=== PATIENT | male | born 1955 | race Caucasian/White ===

== ENCOUNTER → 2016-11-01 | Outpatient (CLI) | payer BC ==
--- NOTE | 2016-11-01 13:16 | DI ---
US ABDOMEN LIMITED,11/01/2016 8:53 AM: Clinical History: Intra-abdominal and pelvic swelling with mass and lump in the left middle abdomen. Previous Exam: None at this facility. Findings: Multiple grayscale and color Doppler sonographic images are obtained through the abdomen demonstratin g a normal-appearing spleen and left kidney. The palpable lesion was also imaged. The left kidney measured 12.0 cm in length without hydronephrosis nor nephrolithiasis. The palpable a rowan corresponds with a 1.2 x 1.3 x 0.6 cm well-circumscribed mass within the subcutaneous fat with si milar echotexture and signature to the adjacent subcutaneous fat. Impression: 1.2 x 1.3 x 0.6 cm lipoma within the left upper anterior abdominal wall.
== END ==
LOC: EDBD 08:45 → US 08:45
PROVIDERS: ATTEND Student in an Organized Health Care Education/Training Program
DX: R19.09 Other intra-abdominal and pelvic swelling, mass and lump (principal); D17.5 Benign lipomatous neoplasm of intra-abdominal organs
CPT/HCPCS: 76705

== ENCOUNTER 2016-12-17 06:49 | Day surgery (SDC) | payer BC ==
[~2016-12-17 06:49] MED LIST: LIDOCAINE W/ SODIUM BICARB 0.5 ML SYR ONE; Lactated Ringers 1,000 ML PRIMARY IV ONE
[2016-12-17] MEDS ORDERED: SODIUM BICARBONATE 8.4% - 50 ML VIAL ONE (07:06)
[2016-12-17] MEDS ORDERED: LIDOCAINE HCL 1%/EPI 1:100,000 - 20 ML VIAL ONE (07:06)
--- NOTE | 2016-12-17 09:19 | GEN.OPNOTE ---
Colonoscopy Procedure Note Surgery Date: 12/17/16 Preoperative Diagnosis: Colon cancer screening. Postoperative Diagnosis: Colon cancer screening. Colon polyps. Procedure: Complete colonoscopy with hot snare polypectomy 2. Surgeon: Sebastian Fletcher MD Anesthesia Provider: Perla Quispe CRNA Anesthesia Type: MAC Indications: Colon cancer screening for colon cancer prevention and/or early detection. Findings: Prep : [Very good] Cecum : [Normal] Ascending : [Normal] Transverse : [Sessile polyp at the hepatic flexure. Sessile polyp in the distal transverse colon.] Sigmoid : [Normal] Rectum : [Normal] Digital Rectal Exam : [Enlarged but nonnodular prostate.] A lubricated flexible colonoscope was inserted and passed to the blind end of the cecum. The blind end of the cecum and ileocecal valve were clearly seen. Patient gives a history of a right colectomy but I saw no evidence of that. Air was aspirated as the scope was withdrawn. The cecum and ascending colon were unremarkable. There was a sessile polyp at the hepatic flexure. Hot snare polypectomy was performed. The base was cauterized. It was difficult to get to. We'll collect a final result was excellent. The scope was continually withdrawn through the transverse colon. In the mid to distal transverse colon was another polyp. Hot snare polypectomy was performed. Hemostasis was assured. The scope was withdrawn through the remainder of a normal-appearing colon. Specifically there were no further polyps, tumors, neoplastic masses, infectious or inflammatory processes identified. The scope was withdrawn completing the procedure. Patient tolerated the procedure well without complication. He was taken to outpatient surgery in stable condition. Follow-up will be in my office in approximately 10 days. We will discuss the biopsy results at that time.
--- NOTE | 2016-12-17 09:22 | GEN.OPNOTE ---
Operative Note Surgery Date: 12/17/16 Preoperative Diagnosis: Left upper quadrant abdominal wall lipoma. Postoperative Diagnosis: Same. Procedure: Excision 2 cm left upper quadrant abdominal wall lipoma. Surgeon: Sebastian Fletcher MD Anesthesia Provider: Perla Quispe CRNA Anesthesia Type: Local (1% Xylocaine with epinephrine and bicarbonate per Sebastian Fletcher M.D.), MAC Estimated Blood Loss (mL): 2 Fluids: 600 mL of crystalloid. Pathology: Specimen to pathology. Indications: Tender and symptomatic lipoma left upper quadrant abdominal wall. Findings: Consistent with a benign lipoma. Complications: None. Operative Summary: Patient was taken to the operating room and placed on a gurney in the supine position. The area was prepped and draped in a sterile fashion. Surgical timeout was done. A transverse incision was made and carried down through the subcutaneous tissue. The lipoma was enucleated. Hemostasis was assured. The wound was closed with deep dermal interrupted 4-0 Monocryl sutures. This was followed by Mastisol, Steri-Strips, and an appropriate dressing. Patient tolerated all aspects of the procedure well without complication. All counts were correct. We then proceeded with colonoscopy. Please see separate report.
[2016-12-17] MEDS ORDERED: HYDROcodone-APAP 5 MG -325 MG TABLET PO PRN (09:23)
[2016-12-17] MEDS ORDERED: KETAMINE 100 MG/1 ML - 5 ML ONE (10:44)
[2016-12-17 11:33] VITALS: TEMP 97.7
[2016-12-17 11:36] VITALS: RESP 15
== END 2016-12-17 09:46 | disposition home or self-care (01) ==
LOC: SDSC 06:49
PROVIDERS: ATTEND Surgery
DX: R19.02 Left upper quadrant abdominal swelling, mass and lump (principal); Z12.11 Encounter for screening for malignant neoplasm of colon; K63.5 Polyp of colon
CPT/HCPCS: 11402; 45385; J2704; J7120